=== PATIENT | female | born 1980 | race Caucasian/White ===

== ENCOUNTER 2017-06-10 05:23 | Day surgery (SDC) | payer OTHER ==
[2017-06-04 10:18] LABS: HEMATOCRIT 41.6 % (36.0-47.0); HEMOGLOBIN 14.1 g/dL (12.0-15.5); MEAN CORPUSCULAR HEMOGLOBIN 31.2 pg (27.0-33.4); MEAN CORPUSCULAR HGB CONC 33.8 g/dL (32.0-36.0); MEAN CORPUSCULAR VOLUME 92 fl (80-97); PLATELET COUNT 282 10^3/uL (150-450); RED BLOOD COUNT 4.51 10^6/uL (3.72-5.28); RED CELL DISTRIBUTION WIDTH 12.5 % (11.5-14.0); WHITE BLOOD COUNT 5.3 10^3/uL (4.0-10.5)
[2017-06-04 10:39] LABS: ALANINE AMINOTRANSFERASE 30 U/L (9-52); ALBUMIN 4.9 g/dL (3.5-5.0); ALKALINE PHOSPHATASE 54 U/L (38-126); ANION GAP 12 (5-19); ASPARTATE AMINO TRANSFERASE 34 U/L (14-36); BILIRUBIN,DIRECT 0.2 mg/dL (0.0-0.4); BILIRUBIN,TOTAL 0.6 mg/dL (0.2-1.3); BLOOD UREA NITROGEN 14 mg/dL (7-20); CALCIUM 9.9 mg/dL (8.4-10.2); CARBON DIOXIDE 28 mmol/L (22-30); CHLORIDE 101 mmol/L (98-107); GLUCOSE 78 mg/dL (75-110); POTASSIUM 4.3 mmol/L (3.6-5.0); TOTAL PROTEIN 7.7 g/dL (6.3-8.2)
[~2017-06-10 05:23] MED LIST: CEFAZOLIN 2 GM/D5W RTU 2 GM/50 ML RTUPB IV PRN; NORMAL SALINE 1000 ML 1,000 ML IV PRN; RINGERS SOLUTION,LACTATED 1,000 ML IV PRN
[2017-06-10] MEDS ORDERED: FENTANYL CITRATE INJ/PF 100 MCG/2 ML AMPUL ONE (07:07)
[2017-06-10] MEDS ORDERED: ACETAMINOPHEN 100 ML IV ONE (07:08)
[2017-06-10] MEDS ORDERED: MIDAZOLAM 2 MG/2 ML INJ ONE (07:08)
[2017-06-10] MEDS ORDERED: PROPOFOL INJ 200 MG/20 ML VIAL IV ONE (07:08)
[2017-06-10] MEDS ORDERED: DEXMEDETOMIDINE INJ 80 MCG/20 ML VIAL IV ONE (07:08)
[2017-06-10] MEDS ORDERED: HYDROMORPHONE HCL INJ/PF 2 MG/ML AMPULE ONE (07:09)
[2017-06-10] MEDS ORDERED: EPHEDRINE SULFATE INJ 50 MG/1 ML AMPULE ONE (07:28)
[2017-06-10] MEDS ORDERED: BUPIVACAINE HCL 0.25 % INJ/PF (2.5 MG/1 ML) 30 ML VIAL ONE (07:45)
[2017-06-10] MEDS ORDERED: KETOROLAC TROMETHAMINE 60 MG/2 ML SDV ONE (08:06)
[2017-06-10] MEDS ORDERED: ONDANSETRON HCL INJ/PF 4 MG/2 ML SDV ONE (08:06)
[2017-06-10] MEDS ORDERED: ROCURONIUM BROMIDE INJ 50 MG/5 ML VIAL IV ONE (08:06)
[2017-06-10] MEDS ORDERED: DEXAMETHASONE SOD PHOSPHATE INJ 4 MG/1 ML VIAL ONE (08:06)
[2017-06-10] MEDS ORDERED: LIDOCAINE 2% INJ-PF (20 MG/ML) 2 ML AMPUL ONE (08:06)
[2017-06-10] MEDS ORDERED: GLYCOPYRROLATE INJ 0.4 MG/2 ML VIAL ONE (08:06)
[2017-06-10] MEDS ORDERED: NEOSTIGMINE METHYLSULFATE 10 MG/10 ML VIAL ONE (08:06)
[2017-06-10] MEDS ORDERED: SUCCINYLCHOLINE CHLORIDE INJ 200 MG/10 ML VIAL ONE (08:06)
[2017-06-10] MEDS ORDERED: METOCLOPRAMIDE HCL INJ/PF 10 MG/2 ML SDV ONE (08:06)
[2017-06-10] MEDS ORDERED: METHYLENE BLUE 50 MG/10 ML AMPULE ONE (09:13)
[2017-06-10] MEDS ORDERED: MORPHINE SULFATE 10 MG/ML INJ IV PRN ×2 (10:24→10:44)
[2017-06-10] MEDS ORDERED: DIPHENHYDRAMINE HCL 50 MG/ML VIAL IV PRN (10:24)
[2017-06-10] MEDS ORDERED: FENTANYL CITRATE INJ/PF 100 MCG/2 ML AMPUL IV PRN ×3 (10:24)
[2017-06-10] MEDS ORDERED: MEPERIDINE HCL/PF INJ 25 MG/1 ML DISP.SYRIN IV PRN (10:24)
[2017-06-10] MEDS ORDERED: ONDANSETRON HCL INJ/PF 4 MG/2 ML SDV IV PRN ×2 (10:24→10:44)
[2017-06-10] MEDS ORDERED: PROMETHAZINE HCL INJ 25 MG/1 ML VIAL IV PRN ×3 (10:24→10:45)
[2017-06-10] MEDS: FENTANYL CITRATE INJ/PF 100 MCG/2 ML AMPUL ONE ×2 (10:30→10:35)
[2017-06-10] MEDS ORDERED: OXYCODONE-ACETAMINOPHEN 5-325 MG TABLET PO PRN ×2 (10:43→11:00)
[2017-06-10] MEDS ORDERED: NORMAL SALINE 1000 ML 1,000 ML IV ONE (11:00)
--- NOTE | 2017-06-10 11:23 | OPERATIVE REPORT E ---
Operative Report NAME: DANYA MEZA : 1980 AGE: 37Y DATE OF SURGERY: 06/10/2017 ROOM: PREOPERATIVE DIAGNOSES: 1. CHRONIC PELVIC PAIN. 2. MENOMETRORRHAGIA UNRESPONSIVE TO MEDICAL THERAPY. POSTOPERATIVE DIAGNOSES: 1. CHRONIC PELVIC PAIN. 2. MENOMETRORRHAGIA UNRESPONSIVE TO MEDICAL THERAPY. OPERATION: 1. Robotic total laparoscopic hysterectomy. 2. Bilateral salpingectomy. 3. Cystoscopy. SURGEON: Ami Covarrubias MD ANESTHESIA: General. ESTIMATED BLOOD LOSS: 100 mL. INTRAVENOUS FLUIDS: 1800 mL. URINE OUTPUT: 300 mL clear urine at the end of the procedure. COMPLICATIONS: None. INDICATIONS: The patient is a 37-year-old, 2, para 2-0-0-2, with a history of chronic pelvic pain and menometrorrhagia unresponsive to medical therapy. Patient desired complete surgical removal of her organs. Patient was counseled on procedure including, but not limited to, bleeding, infection, injury to surrounding organs or tissue including bowel or bladder, and need of transfusion or possible exploratory laparotomy in case there is bleeding that cannot be identified or visualized during the surgical procedure, or due to many adhesions. Patient understood and consented to procedure and agreed to proceed to the operating room. FINDINGS: Large soft, boggy uterus anteverted, mobile. Normal ovaries and fallopian tubes bilaterally. Normal cystoscopy findings *------* procedure. DESCRIPTION OF PROCEDURE: Patient was taken to the operating room. General anesthesia was induced without difficulty. She was placed in the dorsal lithotomy position, and was sterilely prepped and draped in the usual sterile fashion. Vj Hugger was placed to maintain control of core body temperature. Miller catheter was placed in the bladder. A single-toothed tenaculum was placed on the cervix and grasped. Cervical os was dilated. The uterine sounded approximately 10 cm. Two uiidra-uf-vrcpt stitches around 3 o'clock and 9 o'clock were placed where anchoring stitch was brought into placing a VCare and a VCare manipulator was attached to the uterus with a cervical ring and anchored to the stitches on the right and the left. A weighted speculum and a single-tooth tenaculum were removed. Two sutures were placed on the lateral aspect of the cervix to be used as traction later in the procedure, and they were anchored to the stitches on the right and the left, within the ring itself. Horizontal infraumbilical incision was performed where the Veress needle was introduced after injection of local Marcaine 0.25%. The Veress needle was placed in abdominal cavity. Through the Veress needle, carbon dioxide was infused until pneumoperitoneum was established and maintained. This was done after a drop test was successfully done. The Veress needle removed. The infraumbilical incision was extended a little bit. The 12-mm trocar was inserted and placed in the abdominal cavity under direct visualization with the laparoscope without any difficulty. Trocar removed. Robotic laparoscope was placed in abdominal cavity. Please see the above findings. Three additional ports, one in the right lower; one in the left lower; and one in the right upper quadrant were inserted under direct visualization and this was, of course, done after introducing 0.25% Marcaine as a local first prior to initiating the hysterectomy and the bilateral salpingectomy. Special attention was paid to the ureters bilaterally, and the ureters bilaterally were both well away from the surgical field at all times. They were peristalsing and normal in nature. At this point, the fimbriated end of the fallopian tube was grasped, picked up, cauterized and transected along the mesosalpinx all the way down to the cornual region. The round ligament was cauterized and transected. As well, the utero-ovarian ligament was cauterized and transected all the way down to the level of the uterine's. On the contralateral side, was performed in a similar fashion where the fimbriated end of the fallopian tube was grasped, cauterized and transected along the mesosalpinx all the way to the cornual region. Utero-ovarian ligament was cauterized and transected. Round ligament cauterized and transected all the way to the level of the uterine's. The The vesicouterine peritoneum on the right side was then incised in an elliptical fashion, performed a right side of bladder flap in conjunction with left side of the bladder that was initiated previously as well. Of course, at every stage of the procedure, the ureters were visualized and were far away from the surgical hancock. The ring was identified anteriorly and anterior colpotomy was performed. A colpotomy was then extended, circumscribing the cervix from the vaginal mucosae very carefully anteriorly and posteriorly, and then connecting them together. The uterus, fallopian tubes, and the cervix were delivered through the vaginal mucosae. At this point, the vaginal cuff was closed using a running V-Loc suture. Attention again was turned to the ureters bilaterally to make sure they were far away from the surgical incision and the vaginal cuff and they were. After closure of the cuff, the ureters were both bilateral peristalsing and were normal in appearance. Survey of the lateral pelvic sidewall revealed excellent hemostasis. FloSeal was injected along the vaginal cuff for prophylactic measures and hemostasis. Inspection of the anterior, posterior, and lateral cul-de-sac and sidewalls respectively were hemostatic. While closing the vaginal cuff, anesthesia had given methylene blue in order to prepare for the cystoscopy portion. At this point attention was then turned to below to the bladder to perform the cystoscopy portion prior to removing the robotic instruments, and the cystoscope was introduced without any difficulty. The cystoscope revealed no trauma or foreign bodies or injury to the bladder and mucosal wall. Both ureters were identified and there was excellent strong flow of efflux of blue urine bilaterally from both ureters on the right and the left and they were within normal limits and there was a normal bubble sign as well. At this point, the cystoscope was removed. The robot undocked. Abdomen was desufflated. Trocars were removed. A 12 mm infraumbilical incision was repaired with a UR6 to reapproximate or repair the fascia. The remaining incisions were closed with 4-0 Monocryl to reapproximate the tissue in a subcuticular fashion. Dermabond was applied on top of the incisions. All sponge and needle counts were correct x2. Patient did receive prophylactic IV antibiotics. Miller bag was noted to contain clear urine at the end of the procedure. Miller catheter was removed. The vaginal mucosae was inspected and no lacerations. The patient was extubated and successfully went to recovery room. Patient in PACU in stable condition. Patient tolerated the procedure well. All sponge, lap and needle counts were correct x2. DICTATING PHYSICIAN: Ami Covarrubias MD [id number] PHY#: [id number] ID: [id number] JOB#: [id number] ACCT: [id number] cc:Ami Covarrubias >
[2017-06-10 16:14] VITALS: BP 111/77
== END 2017-06-10 16:45 | disposition home or self-care (01) ==
LOC: OROUT 05:23 → 2S 11:17 → OROUT 16:45
PROVIDERS: ATTEND Obstetrics & Gynecology
PROC: 0UT74ZZ Resection of Bilateral Fallopian Tubes, Percutaneous Endoscopic Approach (ICD-10-PCS; 2017-06-10)
PROC: 8E0W4CZ Robotic Assisted Procedure of Trunk Region, Percutaneous Endoscopic Approach (ICD-10-PCS; 2017-06-10)
PROC: 0UT94ZZ Resection of Uterus, Percutaneous Endoscopic Approach (ICD-10-PCS; principal; 2017-06-10 07:30)
DX: N92.1 Excessive and frequent menstruation with irregular cycle (principal); G89.29 Other chronic pain; R10.2 Pelvic and perineal pain; N72 Inflammatory disease of cervix uteri
CPT/HCPCS: 58571; 86900; 86901; 36415 ×2; 86850; 85027; 81025; 80053; 88307 ×2; S2900; J2250; J3490 ×4; J1100; J1885; J3010; J2765; J0330; J2405; J2704; J0690; J0131; Q9968; 81001; 840; J1170